=== PATIENT | female | born 1980 | race Caucasian/White ===

== ENCOUNTER 2019-08-16 12:35 | Emergency (ER) | payer OTHER ==
[2019-08-16] MEDS ORDERED: Acetaminophen 500 MG TAB ONE (14:14)
--- NOTE | 2019-08-16 14:21 | RAD ---
Exam: Chest one view HISTORY:Cough. Comparison: 05/15/2017 FINDINGS: Cardiac silhouette: Normal Aorta: Unremarkable Pulmonary vessels: Normal Costophrenic angles: Clear LUNGS: No masses or consolidation. Pneumothorax: None Osseous abnormalities: None IMPRESSION: No acute cardiopulmonary process.
== END 2019-08-16 15:09 | disposition home or self-care (01) ==
LOC: ERS 12:35
DX: J06.9 Acute upper respiratory infection, unspecified (principal); F39 Unspecified mood [affective] disorder; F17.210 Nicotine dependence, cigarettes, uncomplicated; Z79.899 Other long term (current) drug therapy
CPT/HCPCS: 71045; 87804